=== PATIENT | male | born 1985 | race Caucasian/White ===

== ENCOUNTER → 2016-10-13 | Outpatient (CLI) | payer MEDICAID ==
[~2016-10-13] MED LIST: AMOXICOT500 MG PO; FLEXERIL10 MG PO; GABAPENTIN800 MG PO; IBU800 MG PO; MINOCYCLINE 10100 MG PO; NAPROXEN SODIU500 MG PO; PRAZOSIN HCL1 MG PO; PREDNISONE 20MG20 MG PO; SUBOXONE 8 MG-21 FIL SL; VENLAFAXINE HY150 MG PO
[2016-10-13 16:05] LABS: BILIRUBIN, INDIRECT 0.4 mg/dL (0-0.9)
== END ==
LOC: LAB 13:59
PROVIDERS: Emergency Medicine
DX: R79.89 Other specified abnormal findings of blood chemistry (principal)